=== PATIENT | male | born 1950 | race Caucasian/White ===

== ENCOUNTER → 2017-07-19 | Outpatient (CLI) | payer MEDICARE ==
[~2017-07-19] MED LIST: ADULT LOW DOSE81 MG; AMARYL4 MG PO; CARVEDILOL25 MG PO; CLEOCIN HCL300 MG PO; FENOFIBRATE160 MG PO; HIGH BLOOD PRESSURE; HYZAAR 50-12.51 EACH PO; JANUVIA 50 MG T50 M1; METFORMIN HCL500 MG PO; TRIAMCINOLONE A80 G2 TOP; ULTRAM 50MG TAB50 MG PO
== END ==
LOC: M.ULTRA 07:27
DX: K76.0 Fatty (change of) liver, not elsewhere classified (principal); R16.1 Splenomegaly, not elsewhere classified; B19.20 Unspecified viral hepatitis C without hepatic coma; I85.00 Esophageal varices without bleeding; K31.89 Other diseases of stomach and duodenum; R94.5 Abnormal results of liver function studies

== ENCOUNTER → 2017-08-23 | Outpatient (CLI) | payer MEDICARE | LOC: M.NUC 06:47 | DX: R10.13 Epigastric pain (principal) ==

== ENCOUNTER → 2017-10-09 | Outpatient (CLI) | payer MEDICARE ==
[2017-10-09] VITALS (13 sets, daily range): BP systolic 149–180; BP diastolic 79–96
[~2017-10-09] VITALS: Ht 175.3 cm; Wt 111.1 kg
[2017-10-09 07:37] LABS: HEMATOCRIT 48.2 % (42.0-52.0); HEMOGLOBIN 16.8 gm/dL (14.0-18.0); MCH 32.9 pg (26.0-34.0); MCHC 34.9 g/dL (28.0-37.0); MCV 94.1 fL (80.0-100.0); MPV 8.3 fl. (7.2-11.1); RBC 5.12 mil/uL (4.50-6.00); WBC 5.3 thou/uL (4.0-11.0)
[2017-10-09 07:49] LABS: APTT 26.1 Seconds (25.0-31.3); INR 1.1; PROTIME 10.7 Seconds (9.20-11.50)
[2017-10-09 09:22] LABS: CALCIUM 8.8 mg/dL (8.5-10.1); CREATININE 0.8 mg/dL (0.6-1.3); POTASSIUM 3.7 mmol/L (3.5-5.1)
[2017-10-09 09:27] LABS: ALBUMIN 3.7 g/dL (3.4-5.0); TOTAL BILIRUBIN 0.7 mg/dL (<0.1-1.0); TOTAL PROTEIN 7.1 g/dL (6.4-8.2)
== END | disposition home or self-care (01) ==
LOC: M.ULTRA 06:57
PROVIDERS: Radiology Diagnostic Radiology
DX: K74.0 Hepatic fibrosis (principal); K76.0 Fatty (change of) liver, not elsewhere classified; I10 Essential (primary) hypertension; E11.9 Type 2 diabetes mellitus without complications; Z95.5 Presence of coronary angioplasty implant and graft; Z79.82 Long term (current) use of aspirin; Z79.899 Other long term (current) drug therapy